=== PATIENT | female | born 1975 | race Caucasian/White ===

== ENCOUNTER 2016-11-27 00:04 | Emergency (ER) | payer OTHER ==
[~2016-11-27] VITALS: Ht 152.4 cm; Wt 68.0 kg
[~2016-11-27 00:04] MED LIST: ATIVAN0.5 MG PO; CLARITIN10 MG PO; DUONEB 3 MG/3 ML3 M1 INH; HYCODAN/HYDROMET5 ML PO; LIDEX 0.05% CRE15 GM T; MEDROL DOSEPAK4 MG PO; MUCINEX DM 60 M1 TER PO; Motrin,Rufen800 MG PO; NAPROSYN500 MG PO; PREDNISONE20 M1 PO; TRAMADOL HCL50 MG PO; TRAZODONE50 MG PO; ZITHROMAX250 MG PO
[2016-11-27] MEDS ORDERED: MONTELUKAST SOD10 MG PO (00:09)
[2016-11-27] MEDS ORDERED: DULER200 INH (00:09)
[2016-11-27] MEDS ORDERED: NOVAPLUS V0.09 MG/Ac INH (00:09)
[2016-11-27] MEDS ORDERED: PREDNISONE10 MG PO (01:12)
[2016-11-27] MEDS ORDERED: ZITHROMAX250 MG PO (01:12)
[2016-11-27] MEDS ORDERED: DUONEB 3 MG/3 ML3 M1 INH (01:12)
== END 2016-11-27 01:22 | disposition home or self-care (01) ==
LOC: ED 00:04
DX: J20.9 Acute bronchitis, unspecified (principal); F17.200 Nicotine dependence, unspecified, uncomplicated; Z79.899 Other long term (current) drug therapy; Z88.6 Allergy status to analgesic agent

== ENCOUNTER 2016-12-12 21:44 | Emergency (ER) | payer OTHER ==
[~2016-12-12] VITALS: Ht 152.4 cm; Wt 68.0 kg
[~2016-12-12 21:44] MED LIST changes: +DULER200 INH; +MONTELUKAST SOD10 MG PO; +NOVAPLUS V0.09 MG/Ac INH; +PREDNISONE10 MG PO
[2016-12-12] MEDS ORDERED: LATU40TA PO (21:52)
[2016-12-12] MEDS ORDERED: Motrin,Rufen800 MG PO (22:51)
== END 2016-12-12 23:12 | disposition home or self-care (01) ==
LOC: ED 21:44
DX: S50.11XA Contusion of right forearm, initial encounter (principal); F17.200 Nicotine dependence, unspecified, uncomplicated; Z79.82 Long term (current) use of aspirin; Z79.899 Other long term (current) drug therapy; W31.89XA Contact with other specified machinery, initial encounter; Y93.89 Activity, other specified; Y92.59 Other trade areas as the place of occurrence of the external cause; Y99.0 Civilian activity done for income or pay

== ENCOUNTER 2017-02-10 14:12 | Emergency (ER) | payer OTHER ==
[~2017-02-10] VITALS: Ht 152.4 cm; Wt 70.3 kg
[~2017-02-10 14:12] MED LIST changes: +LATU40TA PO
[2017-02-10] MEDS ORDERED: KEFLEX500 M1 PO (14:48)
[2017-02-10] MEDS ORDERED: ZOFRAN4 MG PO (16:13)
== END 2017-02-10 16:08 | disposition home or self-care (01) ==
LOC: ED 14:12
DX: S01.01XA Laceration without foreign body of scalp, initial encounter (principal); F17.200 Nicotine dependence, unspecified, uncomplicated; Z88.6 Allergy status to analgesic agent; Z79.899 Other long term (current) drug therapy; W20.8XXA Other cause of strike by thrown, projected or falling object, initial encounter; Y93.9 Activity, unspecified; Y92.9 Unspecified place or not applicable; Y99.9 Unspecified external cause status

== ENCOUNTER → 2017-04-23 | Outpatient (CLI) | payer OTHER ==
[~2017-04-23] MED LIST changes: +KEFLEX500 M1 PO; +ZOFRAN4 MG PO
[2017-04-23 14:26] LABS: CHLORIDE 106 mmol/L (98-107); POTASSIUM 4.1 mmol/L (3.5-5.1); SODIUM 137 mmol/L (136-145)
[2017-04-23 14:28] LABS: HEMATOCRIT 43.7 % (37.0-47.0); HEMOGLOBIN 14.8 g/dl (12.0-16.0); MEAN CELL VOLUME 91.4 fl (81.0-99.0); MEAN CORPUSCULAR HGB CONC 33.9 g/dl (33.0-37.0); MEAN PLATELET VOLUME 10.2 fl (9.6-12.3); RED BLOOD COUNT 4.78 10*6/uL (4.10-5.10); RED CELL DISTRI WIDTH 11.9 % (0-14.5); WHITE BLOOD COUNT 6.3 10*3/uL (4.8-10.8)
[2017-04-23 14:39] LABS: ALBUMIN 3.7 gm/dl (3.1-4.5); ALKALINE PHOSPHATASE 87 U/L (45-117); BILIRUBIN, TOTAL 0.3 mg/dl (0.2-1.0); BUN 9 mg/dl (7-24); CARBON DIOXIDE 24 mmol/L (21-32); CHOLESTEROL 221 mg/dL (<200); CPK 51 U/L (26-192); EST GLOM FILT AFRICAN AMERICAN > 60 ml/min; GLUCOSE 87 mg/dL (65-99); HDL CHOLESTEROL 41 mg/dl (40-60); LDL CHOLESTEROL 151 mg/dL (9-159); SGOT/AST 17 IU/L (3-35); SGPT/ALT 27 U/L (12-78); TRIGLYCERIDES 144 mg/dl (<150); VLDL CHOLESTEROL 29 mg/dL (6-40)
[2017-04-23 14:40] LABS: C-REACTIVE PROTEIN < 0.29 MG/DL (0-0.3)
[2017-04-24 07:06] LABS: RHEUMATOID ARTHRITIS FACTOR <10.0 IU/mL (0.0-13.9)
[2017-04-24 13:09] LABS: LYME AB/TOTAL IMMUNOGLOBULINS <0.91 ISR (0.00-0.90)
[2017-04-25 14:07] LABS: ALTERNARIA ALTERNATA, IGE <0.10 kU/L (Class 0); AMERICAN ELM, IGE <0.10 kU/L (Class 0); ASPERGILLUS FUMIGATU, IGE <0.10 kU/L (Class 0); BERMUDA GRASS, IGE <0.10 kU/L (Class 0); BIRCH, COMMON SILVER IGE <0.10 kU/L (Class 0); CAT DANDER <0.10 kU/L (Class 0); CLADOSPORIUM HERBARU, IGE <0.10 kU/L (Class 0); CORN, IGE <0.10 kU/L (Class 0); D PTERONYSSINUS 0.43 kU/L (Class I); IMMUNOGLOBULIN IgE 002170 7 IU/mL (0-100); MAPLE LEAF SYCAMORE, IGE <0.10 kU/L (Class 0); MAPLE/BOX ELDER, IGE <0.10 kU/L (Class 0); MILK (COW), IGE <0.10 kU/L (Class 0); MOUSE URINE IGE <0.10 kU/L (Class 0); PEANUT, IGE <0.10 kU/L (Class 0); PECAN TREE (HICKORY) IGE <0.10 kU/L (Class 0); PENICILLIUM CHRYSOGENUM, IGE <0.10 kU/L (Class 0); ROUGH PIGWEED, IGE <0.10 kU/L (Class 0); SHEEP SORREL (DOCK), IGE <0.10 kU/L (Class 0); SHORT RAGWEED, IGE <0.10 kU/L (Class 0); SOYBEAN, IGE <0.10 kU/L (Class 0); TIMOTHY, IGE <0.10 kU/L (Class 0); WALNUT TREE, IGE <0.10 kU/L (Class 0); WHEAT, IGE <0.10 kU/L (Class 0); WHITE ASH, IGE <0.10 kU/L (Class 0); WHITE MULBERRY, IGE <0.10 kU/L (Class 0); WHITE OAK, IGE <0.10 kU/L (Class 0)
== END | disposition home or self-care (01) ==
LOC: LAB 13:34
PROVIDERS: Family Medicine
DX: T78.1XXA Other adverse food reactions, not elsewhere classified, initial encounter (principal); R21 Rash and other nonspecific skin eruption; R53.83 Other fatigue; M79.606 Pain in leg, unspecified; M79.1 Myalgia; M25.50 Pain in unspecified joint; J45.909 Unspecified asthma, uncomplicated; R79.89 Other specified abnormal findings of blood chemistry; X58.XXXA Exposure to other specified factors, initial encounter

== ENCOUNTER 2017-05-15 20:40 | Emergency (ER) | payer OTHER ==
[~2017-05-15] VITALS: Ht 154.9 cm; Wt 72.6 kg
[2017-05-15 21:22] LABS: BASO % 0.5 % (0.0-1.0); EOS # 0.2 10*3/uL (0.0-0.4); EOS % 2.8 % (1.0-4.0); HEMATOCRIT 43.2 % (37.0-47.0); HEMOGLOBIN 14.6 g/dl (12.0-16.0); LYMPH % 16.6 % (27.0-41.0); MEAN CELL VOLUME 90.4 fl (81.0-99.0); MEAN CORPUSCULAR HGB 30.5 pg (27.0-31.0); MEAN CORPUSCULAR HGB CONC 33.8 g/dl (33.0-37.0); MEAN PLATELET VOLUME 9.8 fl (9.6-12.3); MONO # 0.6 10*3/uL (0.1-1.0); MONO % 9.3 % (3.0-9.0); NEUT # 4.3 10*3/uL (2.3-7.9); NEUT % 70.5 % (47.0-73.0); PLATELET COUNT AUTOMATED 156 10*3/uL (130-400); RED BLOOD COUNT 4.78 10*6/uL (4.10-5.10); WHITE BLOOD COUNT 6.2 10*3/uL (4.8-10.8)
[2017-05-15 21:40] LABS: ALBUMIN 3.6 gm/dl (3.1-4.5); ALKALINE PHOSPHATASE 99 U/L (45-117); BUN 6 mg/dl (7-24); CHLORIDE 102 mmol/L (98-107); CREATININE 0.72 mg/dL (0.55-1.02); SGOT/AST 16 IU/L (3-35); SGPT/ALT 30 U/L (12-78); SODIUM 137 mmol/L (136-145); TROPONIN I < 0.015 ng/ml (<0.045)
[2017-05-15 22:10] LABS: ACT PARTIAL THROMBO TIME 23.1 SECONDS (20.8-31.5)
[2017-05-15 23:09] LABS: BILIRUBIN NEGATIVE (NEGATIVE); BLOOD 2+ (NEGATIVE); CLARITY CLEAR (CLEAR); COLOR YELLOW (YELLOW); GLUCOSE NEGATIVE (NEGATIVE); KETONE NEGATIVE (NEGATIVE); LEUKO ESTERASE NEGATIVE (NEGATIVE); NITRITE NEGATIVE (NEGATIVE)
[2017-05-15 23:18] LABS: EPITHELIAL CELLS 20-25
[2017-05-15 23:19] LABS: URINE AMPHETAMINES < 1000 (1000ng/ml); URINE BARBITURATES < 200 (200ng/ml); URINE BENZODIAZEPINES < 200 (200ng/ml); URINE CANNABINOIDS (THC) < 50 (50ng/ml); URINE COCAINE < 300 (300ng/ml); URINE METHADONE < 300 (300ng/ml); URINE OPIATES < 300 (300ng/ml); URINE PHENCYCLIDINE < 25 (25ng/ml)
[2017-05-16] MEDS ORDERED: ROBITUSSIN AC 110 ML PO (00:08)
[2017-05-16] MEDS ORDERED: VIBRAMYCIN100 MG PO (00:08)
== END 2017-05-16 00:51 | disposition home or self-care (01) ==
LOC: ED 20:40
PROVIDERS: Physician Assistant
DX: J40 Bronchitis, not specified as acute or chronic (principal); F17.200 Nicotine dependence, unspecified, uncomplicated; Z88.6 Allergy status to analgesic agent; Z79.899 Other long term (current) drug therapy

== ENCOUNTER 2017-06-01 21:03 | Emergency (ER) | payer OTHER ==
[~2017-06-01] VITALS: Ht 154.9 cm; Wt 74.4 kg
--- NOTE | ~2017-06-01 | EKG ---
[place], [place] ELECTROCARDIOGRAM REPORT NAME: LICHA ANAND UNIT #: [id number] ROOM: DOCTOR: SONALI DEL TORO,RICK BIRTHDATE: [birth year] DOS: 06/01/2017 TIME: 2117 hours. IMPRESSION: Normal sinus rhythm. RICK LYON MD CM:EKGRPT:ELECTROCARDIOGRAM REPORT [id number] RICK LYON MD
[~2017-06-01 21:03] MED LIST changes: +ROBITUSSIN AC 110 ML PO; +VIBRAMYCIN100 MG PO
[2017-06-01 21:20] LABS: BASO % 0.5 % (0.0-1.0); EOS # 0.2 10*3/uL (0.0-0.4); EOS % 2.3 % (1.0-4.0); HEMATOCRIT 40.5 % (37.0-47.0); HEMOGLOBIN 13.6 g/dl (12.0-16.0); LYMPH # 2.2 10*3/uL (1.3-4.4); LYMPH % 26.4 % (27.0-41.0); MEAN CELL VOLUME 90.4 fl (81.0-99.0); MEAN CORPUSCULAR HGB 30.4 pg (27.0-31.0); MEAN CORPUSCULAR HGB CONC 33.6 g/dl (33.0-37.0); MEAN PLATELET VOLUME 9.9 fl (9.6-12.3); MONO # 0.5 10*3/uL (0.1-1.0); MONO % 5.7 % (3.0-9.0); NEUT # 5.3 10*3/uL (2.3-7.9); NEUT % 64.9 % (47.0-73.0); PLATELET COUNT AUTOMATED 187 10*3/uL (130-400); RED BLOOD COUNT 4.48 10*6/uL (4.10-5.10); WHITE BLOOD COUNT 8.2 10*3/uL (4.8-10.8)
[2017-06-01 21:30] LABS: ACT PARTIAL THROMBO TIME 22.7 SECONDS (20.8-31.5); INTERNATIONAL NORM RATIO 0.9 (2.0-3.5)
[2017-06-01 21:37] LABS: ALBUMIN 3.5 gm/dl (3.1-4.5); ALKALINE PHOSPHATASE 88 U/L (45-117); BUN 7 mg/dl (7-24); CHLORIDE 103 mmol/L (98-107); CREATININE 0.76 mg/dL (0.55-1.02); MAGNESIUM 2.2 mg/dL (1.5-2.1); POTASSIUM 3.6 mmol/L (3.5-5.1); SGOT/AST 19 IU/L (3-35); SGPT/ALT 24 U/L (12-78); SODIUM 137 mmol/L (136-145); TOTAL PROTEIN 7.6 gm/dL (6.4-8.2)
[2017-06-01 21:38] LABS: TROPONIN I < 0.015 ng/ml (<0.045)
[2017-06-04] MEDS ORDERED: CYMBALTA PO (12:33)
== END 2017-06-01 22:44 | disposition home or self-care (01) ==
LOC: ED 21:03
PROVIDERS: Emergency Medicine Emergency Medical Services
DX: R07.89 Other chest pain (principal); G89.29 Other chronic pain; M25.511 Pain in right shoulder; Z79.899 Other long term (current) drug therapy; Z88.6 Allergy status to analgesic agent

== ENCOUNTER → 2017-06-03 | Outpatient (CLI) | payer OTHER ==
[~2017-06-03] MED LIST changes: +CYMBALTA PO
== END | disposition home or self-care (01) ==
LOC: CARD 02:56
DX: R00.2 Palpitations (principal); R06.02 Shortness of breath; R07.9 Chest pain, unspecified

== ENCOUNTER → 2017-06-04 | Outpatient (CLI) | payer OTHER ==
--- NOTE | ~2017-06-04 | ST ---
[place], [place] EXERCISE STRESS TEST REPORT [id number] UNIT #: [id number] ROOM: DOCTOR: CL MOORE MD BIRTHDATE: [birth year] DOS: 06/04/2017 REFERRING PHYSICIAN: Dr. Petersen. INDICATION: Palpitations, shortness of breath. ____ Dr. Buenrostro. The patient underwent standard John protocol stress test testing. The patient's baseline EKG showed normal sinus, nonspecific ST-T wave changes with a heart rate of 81 with a blood pressure of 112/70. Peak heart rate was 175 with a peak blood pressure of 128/78. The patient exercised for a total of 6 minutes 0 seconds to a peak heart rate of 175 which represents 98% of maximum predicted. The patient had no arrhythmias, no EKG changes. The patient did complain of nonlimiting chest pain. The patient's Randolph Treadmill score was calculated at 2. SUMMARY OF FINDINGS: 1. Exercise stress treadmill with no EKG changes, arrhythmias; however, the patient did state nonlimiting chest pain at peak exertion. 2. The patient's Randolph Treadmill score calculated at 2, portending an intermediate risk prognosis. CL MOORE MD CM:STRESS:EXERCISE STRESS TEST REPORT [id number] CL MOORE MD
--- NOTE | 2017-06-04 11:45 | NUR ---
INFORMED CONSENT OBTAINED FOR STANDARD GXT WITH DR. MOORE. RESTING EKG NSR WITH A SUPINE HR OF 81 WITH BP OF 112/70 AND HR OF 99 WITH BP OF 100/74. SPO2 OF 100% PRIOR TO EXERCISE. PT COMPLETED 6:00 OF A RACHANA PROTOCOL WITH COMPLETION OF STAGE II AT 2.5 MPH AND 12% GRADE. REACHED A PEAK HR OF 175 WHICH IS 98% OF PREDICTED HR WITH BP OF 128/78. SPO2 OF 96% IN STAGE I AND SPO2 OF 99% IN STAGE II. HAD NO ST CHANGES. TEST TERMINATED BECAUSE OF SOB, FATIGUE AND "LEG BURNING." END STAGE II DEVELOPED CENTRAL CHEST DISCOMFORT THAT WAS 8 ON PAIN SCALE. CHEST DISCOMFORT RELIEVED SOB SUBSIDED. RECOVERY SPO2 OF 98%. HAS A FAIR EXERCISE TOLERANCE. NEGATIVE STANDARD GXT BY EKG CRITERIA AT 98% OF PMHR. DISCHARGED IN STABLE CONDITION.
== END | disposition home or self-care (01) ==
LOC: CARD 00:57
DX: R00.2 Palpitations (principal); R06.02 Shortness of breath; R00.0 Tachycardia, unspecified; R07.9 Chest pain, unspecified

== ENCOUNTER 2017-07-09 23:08 | Emergency (ER) | payer OTHER ==
[~2017-07-09] VITALS: Ht 154.9 cm; Wt 72.6 kg
[2017-07-10] MEDS ORDERED: NORCO 5-325 TA1 EACH PO (00:12)
[2017-07-10] MEDS ORDERED: PREDNISONE20 M1 PO (00:12)
== END 2017-07-10 00:24 | disposition home or self-care (01) ==
LOC: ED 23:08
DX: M72.2 Plantar fascial fibromatosis (principal); G89.29 Other chronic pain; Z88.6 Allergy status to analgesic agent; Z79.899 Other long term (current) drug therapy

== ENCOUNTER 2017-08-13 21:58 | Inpatient (IN) | payer OTHER ==
[~2017-08-13] VITALS: Ht 160 cm; Wt 86.0 kg
--- NOTE | ~2017-08-13 | WRIGHTHP ---
[place], [place] PATIENT HISTORY AND PHYSICAL EXAM NAME: LICHA ANAND [facility] #: [id number] UNIT #: [id number] ROOM: 512 DOCTOR: ELLEN REED MD BIRTHDATE: [birth year] DOS: 08/14/2017 HISTORY OF PRESENT ILLNESS: The patient is a 42-year-old, not known to me, patient of Dr. Buenrostro, who was brought to the Emergency Room with complaints of chest pain. The patient has had a complete workup, which included a stress test and echocardiogram and ambulatory EKG for several days. These all have come back negative. The patient had seen Dr. Guzman as an outpatient and was advised that she may benefit from a cardiac catheterization. The patient arrived to the Emergency Room. did call me and stated that the patient needed to be admitted for transfer for cardiac catheterization. This morning, the patient is not having any complaints at all. PAST MEDICAL HISTORY: Significant for: 1. Chest pain with so far negative workup. 2. Mild intermittent asthma, controlled. MEDICATIONS: She is on are Ventolin p.r.n., Dulera 200 mcg twice a day, breathing treatments with DuoNeb q.4, Ativan 0.5 twice a day, metoprolol 25 twice a day, Singulair 10 daily. SOCIAL HISTORY: Smokes about a half a pack of cigarettes a day. Denies using any alcohol. Lives at home with her boyfriend. FAMILY HISTORY: Father about 3 weeks ago from interstitial lung disease and pulmonary fibrosis. Mother has type 2 diabetes mellitus. She is an only child. PHYSICAL EXAMINATION: GENERAL: She is awake and alert and oriented. Warm and dry, in no distress. VITAL SIGNS: Blood pressure is 93/59, pulse of 61, respirations 18, temperature 97.6. LUNGS: Clear. HEART: Regular. ABDOMEN: Soft, nontender. EXTREMITIES: Without any edema. LABORATORY DATA: Three troponins were negative. White cell count is normal, hemoglobin and hematocrit were normal, platelets were normal. Sodium 137, potassium 3.8, chloride 103, carbon dioxide 28, BUN 8, creatinine 0.74. Liver enzymes were normal. ASSESSMENT AND PLAN: The patient who presents with: 1. Chest pain with a negative workup as an outpatient so far is not having any complaints and is ruled out for [place]. The plan is to discharge her to home. Cardiology consultation was obtained. They feel that the patient needs to be sent for a cardiac catheterization. I will let them make that decision. As far as I am concerned, the patient is stable and can be discharged. 2. Intermittent asthma, mild, controlled without any exacerbation. [place], [place] PATIENT HISTORY AND PHYSICAL EXAM NAME: LICHA ANAND UNIT #: [id number] ROOM: 512 DOCTOR: ELLEN REED MD BIRTHDATE: [birth year] ELLEN REED MD CM:HISPHYS:PATIENT HISTORY AND PHYSICAL EXAMINATION [id number] ELLEN REED MD 08/14/17 1047 interface
--- NOTE | ~2017-08-13 | EKG ---
[place], [place] ELECTROCARDIOGRAM REPORT NAME: LICHA ANAND UNIT #: [id number] ROOM: [facility] DOCTOR: SONALI DEL TORO,RICK BIRTHDATE: [birth year] DOS: 08/14/2017 TIME: 2204 hours. IMPRESSION: 1. Sinus rhythm, rate 100. 2. Baseline artifacts. 3. No ischemic changes. 4. Normal QT interval. RICK LYON MD CM:EKGRPT:ELECTROCARDIOGRAM REPORT [id number] RICK LYON MD
[~2017-08-13 21:58] MED LIST changes: +NORCO 5-325 TA1 EACH PO
[2017-08-13 22:09] VITALS: BP 151/95
--- NOTE | 2017-08-13 22:10 | NUR ---
ALSO C/O BILAT EAR PAIN AND THROAT PAIN
[2017-08-13] MEDS ORDERED: NITROGLYCERIN0.4 MG SL (22:12)
[2017-08-13] MEDS ORDERED: LOPRESSOR25 MG PO (22:12)
[2017-08-13 22:16] VITALS: BP 135/84
[2017-08-13 22:37] LABS: BASO % 0.5 % (0.0-1.0); EOS # 0.1 10*3/uL (0.0-0.4); EOS % 1.3 % (1.0-4.0); HEMATOCRIT 40.1 % (37.0-47.0); HEMOGLOBIN 13.4 g/dl (12.0-16.0); LYMPH % 22.9 % (27.0-41.0); MEAN CELL VOLUME 90.1 fl (81.0-99.0); MEAN CORPUSCULAR HGB 30.1 pg (27.0-31.0); MEAN CORPUSCULAR HGB CONC 33.4 g/dl (33.0-37.0); MEAN PLATELET VOLUME 10.5 fl (9.6-12.3); MONO # 0.4 10*3/uL (0.1-1.0); MONO % 4.2 % (3.0-9.0); NEUT % 70.7 % (47.0-73.0); PLATELET COUNT AUTOMATED 165 10*3/uL (130-400); RED BLOOD COUNT 4.45 10*6/uL (4.10-5.10); RED CELL DISTRI WIDTH 12.1 % (0-14.5); WHITE BLOOD COUNT 8.5 10*3/uL (4.8-10.8)
[2017-08-13 22:49] LABS: ACT PARTIAL THROMBO TIME 23.3 SECONDS (20.8-31.5)
[2017-08-13 22:53] LABS: ALBUMIN 3.6 gm/dl (3.1-4.5); ALKALINE PHOSPHATASE 82 U/L (45-117); BUN 8 mg/dl (7-24); CHLORIDE 103 mmol/L (98-107); CREATININE 0.74 mg/dL (0.55-1.02); POTASSIUM 3.8 mmol/L (3.5-5.1); SGOT/AST 16 IU/L (3-35); SGPT/ALT 23 U/L (12-78); SODIUM 137 mmol/L (136-145); TOTAL PROTEIN 7.2 gm/dL (6.4-8.2)
[2017-08-13 22:59] LABS: TROPONIN I < 0.015 ng/ml (<0.045)
[2017-08-13 23:09] VITALS: BP 108/85
--- NOTE | 2017-08-13 23:18 | NUR ---
STILL DENIES CP AT PRESENT
[2017-08-14 00:02] VITALS: BP 96/73
--- NOTE | 2017-08-14 00:16 | NUR ---
ATTEMPTED TO CALL REPORT, INFORMED THAT NURSE WILL CALL BACK TO ED DEPT
[2017-08-14 00:40] VITALS: BP 125/86
--- NOTE | 2017-08-14 01:19 | NUR ---
Time: A 42 year old F admitted to 5E under services of ELLEN HORAN MD. Pt. arrived via bed from ER. Chief complaint: CHEST PAIN. JAMILA IBANEZ
[2017-08-14 01:30] VITALS: BP 124/84
[2017-08-14 08:00] VITALS: BP 93/59
--- NOTE | 2017-08-14 08:30 | NUR ---
[employer] in to talk to patient. Patient states lives at HOME with HER . There are 12 steps in the home. Physician: DR DUNN Pharmacy: [facility] Home health services: NONE Patient's level of ADLs: INDEPENDENT Patient has working utilities: YES DME: NONE Follow-up physician's appointment after d/c: PREFERS TO MAKE HER OWN APPT Does patient want to access PORTAL?: Discharge plan HOME. BILL PEREZ
[2017-08-14 12:00] VITALS: BP 101/60
--- NOTE | 2017-08-14 13:59 | NUR ---
Discharge instructions reviewed with patient/family. Patient receptive and verbalizes understanding. Follow-up care arranged. Written instructions given to patient/family. MAXI WESTFALL
== END 2017-08-14 13:59 | disposition home or self-care (01) | DRG 313 ==
LOC: ED 21:58 → EDHOLD 08-14 00:01 → 5E 08-14 00:01
PROVIDERS: Emergency Medicine Emergency Medical Services; ADMIT Internal Medicine
DX: R07.89 Other chest pain (principal); I20.8 Other forms of angina pectoris; D72.810 Lymphocytopenia; J40 Bronchitis, not specified as acute or chronic; M25.511 Pain in right shoulder; G89.29 Other chronic pain; R73.9 Hyperglycemia, unspecified; F17.200 Nicotine dependence, unspecified, uncomplicated; F41.9 Anxiety disorder, unspecified; J45.20 Mild intermittent asthma, uncomplicated; J44.9 Chronic obstructive pulmonary disease, unspecified; Z82.49 Family history of ischemic heart disease and other diseases of the circulatory system; Z83.3 Family history of diabetes mellitus; Z88.6 Allergy status to analgesic agent; Z79.899 Other long term (current) drug therapy

== ENCOUNTER 2017-09-16 00:44 | Emergency (ER) | payer OTHER ==
[~2017-09-16] VITALS: Ht 154.9 cm; Wt 72.6 kg
[~2017-09-16 00:44] MED LIST changes: +LOPRESSOR25 MG PO; +NITROGLYCERIN0.4 MG SL
[2017-09-16] MEDS ORDERED: ANAPROX DS550 MG PO (01:06)
== END 2017-09-16 02:01 | disposition home or self-care (01) ==
LOC: ED 00:44
DX: M77.11 Lateral epicondylitis, right elbow (principal); F17.200 Nicotine dependence, unspecified, uncomplicated; Z88.6 Allergy status to analgesic agent; Z79.899 Other long term (current) drug therapy